=== PATIENT | female | born 1975 | race Hispanic/Latino ===

== ENCOUNTER 2017-08-10 08:07 | Day surgery (SDC) | payer OTHER ==
[2017-08-10] MEDS ORDERED: Lactated Ringer's 1,000 ML IV ONE (08:40)
[2017-08-10] MEDS ORDERED: Lidocaine 2% MPF (5 ml) Inj ONE (10:00)
[2017-08-10] MEDS ORDERED: Propofol 10 mg/ml Inj (20 ML) ONE (10:00)
[2017-08-10 10:38] VITALS: TEMP 96.8
[2017-08-10 10:45] VITALS: BP 110/70; PULSE 88; RESP 15; O2SAT 99
== END 2017-08-10 11:27 | disposition home or self-care (01) ==
LOC: H.ENDO 08:07
PROVIDERS: ATTEND Internal Medicine Gastroenterology
DX: Z12.11 Encounter for screening for malignant neoplasm of colon (principal); K64.8 Other hemorrhoids; K57.30 Diverticulosis of large intestine without perforation or abscess without bleeding; K30 Functional dyspepsia; K29.70 Gastritis, unspecified, without bleeding; K29.50 Unspecified chronic gastritis without bleeding; B96.81 Helicobacter pylori [H. pylori] as the cause of diseases classified elsewhere
CPT/HCPCS: 43239; 45378; 88305; J2704; J7120